=== PATIENT | male | born 1985 | race Hispanic/Latino ===

== ENCOUNTER 2018-03-24 08:20 | Day surgery (SDC) | payer OTHER ==
[2018-03-06 07:04] VITALS: BMI 33.5
[2018-03-24] MEDS ORDERED: Propofol 10 mg/ml Inj (20 ML) ONE (09:17)
[2018-03-24] MEDS ORDERED: Midazolam 2 MG/2 ML VIAL ONE (09:17)
[2018-03-24] MEDS ORDERED: Rocuronium 10 mg/ml (5 ml) ONE (09:21)
[2018-03-24] MEDS ORDERED: CeFAZolin 1 gm in NS 100ml IVPB ONE (09:28)
[2018-03-24] MEDS ORDERED: Bupivacaine 0.5% 50 ML IJ ONE (09:40)
[2018-03-24] MEDS ORDERED: Glycopyrrolate 0.2 mg/ml (2ml vial) ONE (10:18)
[2018-03-24] MEDS ORDERED: Neostigmine Methylsulfate 3mg/3ml Syringe IV ONE (10:53)
--- NOTE | 2018-03-24 11:06 | PCM.SURG1 ---
Surgeon's Initial Post Op Note - Surgeon's Notes Surgeon: Dr. Vance Furniture Inspector: Dr. Chen PGY3 Type of Anesthesia: General Endo Pre-Operative Diagnosis: hypercalcemia. enlarged right inferior parathyroid Operative Findings: right inferior parathyroid adenoma Post-Operative Diagnosis: same Operation Performed: right inferior parathryoidectomy Specimen/Specimens Removed: right inferior parathyroid gland Estimated Blood Loss: EBL {In ML}: 10 Blood Products Given: N/A Drains Used: No Drains Post-Op Condition: Good Date of Surgery/Procedure: 03/24/18 Time of Surgery/Procedure: 11:06
[2018-03-24] MEDS ORDERED: Lactated Ringer's 1,000 ML IV SCH (11:15)
[2018-03-24 11:32] LABS: ALB/GLOB RATIO 1.2 (1.1-1.8); ALBUMIN 3.7 g/dL (3.0-4.8); ALT/SGPT 65 U/L (7-56); AST/SGOT 29 U/L (17-59); BLOOD UREA NITROGEN 15 mg/dL (7-21); CALCIUM 10.2 mg/dL (8.4-10.5); GFR NON-AFRICAN AMERICAN > 60
[2018-03-24 11:56] VITALS: RESP 18; TEMP 99.2
[2018-03-24 12:09] VITALS: BP 114/61; PULSE 67; O2SAT 97
--- NOTE | 2018-03-24 21:54 | OP ---
PROCEDURE DATE: 03/24/2018 PREOPERATIVE DIAGNOSIS: Parathyroid adenoma in the right lower parathyroid. POSTOPERATIVE DIAGNOSIS: Parathyroid adenoma in the right lower parathyroid. PROCEDURE PERFORMED: Right inferior parathyroidectomy. SURGEON: Gerson Kirkland MD BOILER WELDER: Mauro Chen DO ANESTHESIA: General endotracheal anesthesia. ANESTHESIOLOGIST: Dr. Hernandez ESTIMATED BLOOD LOSS: Minimal. SPECIMEN: Right inferior parathyroid. INDICATION: The patient is a 32-year-old male with history of elevated calcium and intact PTH levels. The patient was scanned with ultrasound, showing a 1.5 x 1.1 cm mass in the right inferior parathyroid position. The patient did have a sestamibi scan which was negative. Given the findings and abnormal mass in the neck, the decision was made to proceed exploration and possible parathyroidectomy. DESCRIPTION OF PROCEDURE: The patient was brought to the operating room and placed on the operating table in supine position. The patient was connected to EKG, blood pressure, and pulse oximetry monitors. The patient had a towel roll placed under the shoulder and the neck extended. The patient was prepped and draped in the usual sterile fashion. First, a standard time-out procedure took place and everybody in the room agreed as to the patient's identity, diagnosis, and procedure to be performed. Using lidocaine mixed with Marcaine, the area of the incision was infiltrated. An incision was made about 2 fingerbreadths above the sternal notch slightly towards the right side, measuring about 4 cm in length. Through that incision, correct dissection through the fat and platysma muscle, the strap muscles were then carefully dissected and , and dissection over the bottom of the right lobe was done. The thyroid lobe was pushed medially and superiorly exposing the underlying mass, which was carefully dissected out and represented parathyroid. This was resected and sent as a specimen. Further resection confirmed the presence of enlarged parathyroid, and the wound was now copiously irrigated. All the bleeding points were cauterized. The wound was closed in layers for closing the strap muscles together, then platysma muscle, then deep dermal layer of the skin and subcuticular closure of the skin with 4-0 Monocryl. A sterile Dermabond dressing was applied to the wound. The patient tolerated the procedure well, and there were no complications. The patient was awakened and transferred to the recovery room for further observation. Gerson Kirkland MD [facility] # [id number]
== END 2018-03-24 13:10 | disposition home or self-care (01) ==
LOC: SDS 08:20
PROVIDERS: ATTEND General Practice
DX: D35.1 Benign neoplasm of parathyroid gland (principal); E83.52 Hypercalcemia; E66.9 Obesity, unspecified; Z68.33 Body mass index [BMI] 33.0-33.9, adult
CPT/HCPCS: 36415; 60500; 80053; 83970; 88305; 88331; J0690; J1100; J2001; J2250; J2405; J2704; J2710; J3010; J7120